=== PATIENT | male | born 1950 | race Caucasian/White ===

== ENCOUNTER → 2016-06-05 | Outpatient (CLI) | payer OTHER ==
--- NOTE | 2016-06-05 16:24 | DX ---
Right knee series 3 views 1505 hours. History: Previous right distal patellar tendon repair. Recheck fracture. Findings: Comparison to June 28, 2015 and studies dating back to December 29, 2014. There has been fracture of the superior cerclage portion of the wire at the medial and lateral corner s associated with the superior patellar fracture component that is now subluxed anterior to the cercl age wire as well as superior in position. On the previous study, the superior component of the patell a was displaced from the anterior component by about 20 mm. On today's study the distance measures ab out 26 mm. There is increase calcification at the tibial tuberosity along the patellar tendon. Moderate vascular calcifications are once again noted. There is a mild to moderate effusion in the suprapatella bursa. The knee joint space is relatively well-maintained without significant osteophyte formation. On the merchant view obtained there is no subluxation of the patella. Impression: 1. Interval fracture of the superior arc of the cerclage wire with anterior and superior displacement of the superior component of the patellar fracture. 2. Mild to moderate effusion suprapatella bursa. 3. Increasing calcifications at the tibial tuberosity associated with the patellar tendon. This could represent underlying calcific tendinosis.
== END ==
LOC: BMCIMAGING 15:06
PROVIDERS: ATTEND Physician Assistant
DX: S82.001K Unspecified fracture of right patella, subsequent encounter for closed fracture with nonunion (principal); T84.418A Breakdown (mechanical) of other internal orthopedic devices, implants and grafts, initial encounter

== ENCOUNTER → 2016-06-21 | Outpatient (CLI) | payer OTHER ==
[~2016-06-21] MED LIST: IOPAMIDOL (ISOVUE 370) 100 ML BTL IV ONE
--- NOTE | 2016-06-21 16:44 | CT ---
Chest CTA (with IV contrast) History: Follow-up enlarged ascending aorta (4.4 cm) on May 2011. Coronary artery disease. Preope rative knee surgery. I77.810. Technique: Ultrafast ultrathin [address] obtained through the chest after bolus administrat ion of 85 mL of Isovue 370 nonionic contrast without complication. Soft tissue and bone window evalua tion is performed. Dose reduction techniques were utilized. Comparison: June 19, 2012 CT Chest: Findings: A prior 3 mm noncalcified solid nodule with slightly irregular margins in the lateral right lower lobe has now increased in size to 8 x 8 mm (image 143, series 3). A very small area of tree-in -bud nodularity in the anterolateral right upper lobe (image 92)and low anterior right upper lobe (im age 89) are stable and may indicate chronic MARIA D infection or localized bronchiolitis of other etiolo gy. There is no evidence of pneumonia, pleural effusion, mass or pneumothorax. The heart remains enla rged with triple-vessel coronary artery disease, but without pericardial effusion. The left atrial ap pendage is prominent without thrombus. The aortic valve is trileaflet and gracile, without leaflet ca lcification. Asymmetrical enlargement of the right thyroid, mildly compressing the right side of the trachea, is not significantly changed measuring 2 cm width. There is chronic cholelithiasis without s econdary evidence of cholecystitis. Impression: Normal. CTA Chest: Technique: Multiplanar and 3D reconstructions are reviewed on an independent 3D workstation. Findings: On corrected axial non gated images the ascending aorta measures 4.7 cm AP x 4.6 cm compar ed to the adjacent main pulmonary artery which measures 3.6 cm and the prior CT 4.2 cm x 4.4 cm. On c orrected sagittal images it measures 4.3cm AP. There is no aortic dissection. Impression: 1. Progressive enlargement of the ascending aortic aneurysm, without dissection. 2. Chronic triple-vessel coronary artery disease. 3. Enlarging noncalcified left lower lobe pulmonary nodule. Consider PET CT and/or short interval fol low-up noncontrast CT in perhaps 6 months for reevaluation. Results called to Dr. Tyler at 4:43 p.m. General information for patients regarding this examination can be found at [email or web address]. If you have questions or comments about this report, please contact me at [phone] (hospital) or [phone] (cell).
== END ==
LOC: CIMAGING 12:32
PROVIDERS: ATTEND Internal Medicine Cardiovascular Disease
DX: I71.2 Thoracic aortic aneurysm, without rupture (principal); I25.10 Atherosclerotic heart disease of native coronary artery without angina pectoris; R91.1 Solitary pulmonary nodule
CPT/HCPCS: 71275-PO; Q9967

== ENCOUNTER → 2016-06-28 | Day surgery (SDC) | payer OTHER ==
[~2016-06-28] MED LIST changes: +ASPIRIN EC 325 MG TAB PO ONE; +ATROPINE SULFATE 1 MG/10 ML SYR IVP PRN; +DIAZEPAM 5 MG TAB ONE; +DIAZEPAM 5 MG TAB PO ONE; +FAMOTIDINE 20 MG TAB ONE; +FAMOTIDINE 20 MG TAB PO ONE; +HEPARIN 10,000 UNIT/10 ML MDV ONE; +HYDROCODONE/APAP 5/325 TAB PO PRN; -IOPAMIDOL (ISOVUE 370) 100 ML BTL IV ONE; +IOPAMIDOL (ISOVUE-370) 150 ML BTL IV ONE; +LIDOCAINE 1% 30 ML SDV ONE; +LIDOCAINE 1% 5 ML SDV ONE; +MIDAZOLAM 2 MG/2 ML VIAL ONE; +NITROGLYCERIN 0.4 MG BTL SL PRN; +NS 1,000 ML IV ONE; +ONDANSETRON 4 MG/2 ML VIAL IVP PRN; +OXYCODONE/APAP 5/325 TAB PO PRN; +VERAPAMIL 5 MG/2 ML VIAL ONE; +diphenhydrAMINE 25 MG CAP PO ONE; +fentaNYL 100 MCG/2 ML INJ ONE
--- NOTE | 2016-06-28 10:10 | CPEKG ---
Heart Rate: 50 RR Interval: 1200 P-R Interval: 196 QRSD Interval: 108 QT Interval: 464 QTC Interval: 424 P [place]: 26 QRS [place]: 13 T Wave [place]: -21 EKG Severity - ABNORMAL ECG - EKG Impression: SINUS RHYTHM EKG Impression: NONSPECIFIC T ABNORMALITIES, INFERIOR LEADS Electronically Signed By: Bev Gilliam 28-Jun-2016 17:08:13
[2016-06-28 10:34] LABS: % IMMATURE GRANULYOCYTES 0.1 % (0.0-1.1); ABSOLUTE IMMATURE GRANULOCYTES 0.01 10^3/uL (0.00-0.10); ADD DIFF? NO; ADD MORPH? NO; ADD SCAN? NO; ATYPICAL LYMPHOCYTE FLAG 20 (0-99); FRAGMENT RBC FLAG 0 (0-99); HEMATOCRIT 40.8 % (40.0-51.0); HEMOGLOBIN 13.4 g/dL (13.7-17.5); LEFT SHIFT FLG 0 (0-99); LIPEMIA HEMOLYSIS FLAG 80 (0-99); MEAN CELL HEMOGLOBIN CONCENTR. 32.8 g/dL (32.4-36.7); MEAN CELL VOLUME 88.3 fL (81.5-99.8); MEAN PLATELET VOLUME 10.4 fL (8.7-11.7); PLATELET CLUMPS FLAG 0 (0-99); PLATELET COUNT 242 10^3/uL (150-400); RED BLOOD CELL COUNT 4.62 10^6/uL (4.40-6.38); RED CELL DISTRIBUTION WIDTH 15.9 % (11.5-15.2)
[2016-06-28 10:42] LABS: INR 1.08 (0.83-1.16); PROTIME(PATIENT) 13.9 SEC (12.0-15.0)
[2016-06-28 11:01] LABS: ANION GAP 10 mEq/L (8-16); CARBON DIOXIDE 25 mEq/l (22-31); CHLORIDE 107 mEq/L (97-110); CHOLESTEROL 98 mg/dL (140-220); CHOLESTEROL/HDL RATIO 2.28 RATIO (1.00-4.97); CREATININE 0.9 mg/dL (0.7-1.3); GLOMERULAR FILTRATION RATE > 60; GLUCOSE 90 mg/dL (70-100); HIGH DENSITY LIPOPROTEIN 43 mg/dL (40-65); LDL/HDL RATIO 1.05 RATIO (1.00-3.64); LOW DENSITY LIPOPROTEIN 45 mg/dL (80-100); MAGNESIUM 1.7 mg/dL (1.6-2.3); NON-HIGH DENSITY LIPOPROTEIN 55 mg/dL (90-129); POTASSIUM 4.6 mEq/L (3.5-5.2); SODIUM 142 mEq/L (134-144); TRIGLYCERIDE 51 mg/dL (40-150); VERY LOW DENSITY LIPOPROTEINS 10 mg/dL (8-25)
--- NOTE | 2016-06-28 12:30 | SUROPNOTE ---
[facility] Operative Report - Surgery Date of Procedure: 06/28/16 Indication: This patient is a 65 year old man, with known coronary disease, history of anterior AR and PCI in 1996 (I do not have details/records of this), hypertension, progressive ascending aorta dilation, hyperlipidemia, family history of premature coronary disease in multiple first degree relatives, left lower lung mass, and LIAM, who presented to our office for cardiac evaluation in the setting of pre-operative evaluation for right knee surgery. The patient has no cardiac complaints and denies angina or anginal equivalent. Nuclear stress test was abnormal, demonstrating inferior lead T-wave inversion at peak stress, a new small size, severe intensity reversible defect in the basal and mid inferior wall consistent with ischemia, new inferior wall hypokinesis, and left ventricular transient ischemic dilation. The patient's knee surgery has been cancelled until he undergoes further evaluation. Left heart catheterization indicated secondary to known coronary disease and high risk non-invasive testing. Procedures performed: 1. Left heart catheterization with left ventricular and selective coronary angiography. Description of procedure: Description, risks, benefits and alternatives were discussed in detail. Informed consent was obtained. The patient was brought to the catheterization laboratory where a timeout was performed. The right wrist was sterilely prepped and draped. 2% lidocaine utilized for local anesthetic. A 5/6-Serbian slender hemostatic sheath placed right radial artery utilizing micropuncture technique. Intraarterial verapamil and intravenous heparin was administered. Diagnostic coronary angiography performed with 6-Serbian, Yakov left-3.5 and Yakov right -4 catheter. All catheters were passed over a 0.035 guidewire. Pigtail catheter was then utilized for left heart catheterization and left ventricular angiography. Arterial sheath was removed and TR band was placed. Findings: 1. Hemodynamics: Aortic pressure 127/75, mean of 82, left ventricular pressure 134/6/26 end-diastolic. There was no significant pull back gradient across the aortic valve. 2. Left ventricle: The left ventricle appears normal in size. Left ventricle is normal shape. Segmental wall motion is abnormal with mild inferior wall hypokinesis and an ejection fraction of 50%. There are no filling defects or significant mitral regurgitation. The ascending aorta is moderately dilated. 3. Coronary angiography: Left main: The left main is a large trifurcating vessel with mild disease 4. Left anterior descending: This is a large vessel continuing around the apex. There are no major diagonal branches. There is a proximal stent which is widely patent. 5. Ramus Intermedius: This is a small-moderate vessel with a proximal 85% stenosis. 6. Circumflex: The circumflex large nondominant vessel with a single large branching obtuse marginal, with mild irregularities. 7. Right coronary: Large dominant vessel. There is a very eccentric, heavily calcified 99% mid-vessel subtotal occlusion with TIMI2 flow, with antegrade and retrograde collaterals. Large PDA and large posterolateral fill from left to right collaterals. Overall Impression: 1. Severe mid-vessel right coronary subtotal occlusion. 2. Severe 85% proximal ramus intermedius stenosis. 3. Mild coronary artery disease elsewhere. Patent stent in the proximal left anterior descending. 4. Mild left ventricle inferior wall hypokinesis, with low-normal systolic function, EF 50%. 5. Moderate ascending aorta dilation, which has been progressive in enlargement based on CT. Plan: 1. The patient may proceed with knee surgery. 2. Plan for right coronary intervention shortly after knee surgery, in the post -operative phase. 3. Start dual anti-platelet therapy in post-operative phase, prior to intervention. Portions of this report were documented by a emergency medical dispatcher. I have reviewed this report and agree with the documentation. Report scribed for Dr. Goran Talley. Report scribed by Krystyna Jaime.
== END | disposition home or self-care (01) ==
LOC: FCATH 09:46
PROVIDERS: ATTEND Internal Medicine Interventional Cardiology
PROC: B2111ZZ Fluoroscopy of Multiple Coronary Arteries using Low Osmolar Contrast (ICD-10-PCS; principal; 2016-06-28)
PROC: 4A023N7 Measurement of Cardiac Sampling and Pressure, Left Heart, Percutaneous Approach (ICD-10-PCS; principal; 2016-06-28)
PROC: B2151ZZ Fluoroscopy of Left Heart using Low Osmolar Contrast (ICD-10-PCS; principal; 2016-06-28)
DX: Z01.810 Encounter for preprocedural cardiovascular examination (principal); I25.10 Atherosclerotic heart disease of native coronary artery without angina pectoris; I25.2 Old myocardial infarction; I10 Essential (primary) hypertension; I72.0 Aneurysm of carotid artery; R91.8 Other nonspecific abnormal finding of lung field; Z82.49 Family history of ischemic heart disease and other diseases of the circulatory system; Z95.5 Presence of coronary angioplasty implant and graft; G47.33 Obstructive sleep apnea (adult) (pediatric); E78.5 Hyperlipidemia, unspecified
CPT/HCPCS: J1644; J2250; J3010; Q9967

== ENCOUNTER 2016-07-01 07:27 | Day surgery (SDC) | payer OTHER ==
[2016-07-01] MEDS ORDERED: BUPIVACAINE/EPI 0.5% 30 ML SDV ONE (07:35)
[2016-07-01] MEDS ORDERED: POLYMYXIN B SULFATE 500,000 UNIT/10 ML SYR IRR ONE (07:35)
[2016-07-01] MEDS ORDERED: LIDOCAINE 1% 5 ML SDV ID PRN (08:04)
[2016-07-01] MEDS ORDERED: LR 1,000 ML IV ONE (08:04)
[2016-07-01] MEDS ORDERED: ACETAMINOPHEN 500 MG TAB PO ONE (08:30)
[2016-07-01] MEDS ORDERED: ceFAZolin 2 GM/DEXTROSE 100 ML IV ONE (08:30)
[2016-07-01] MEDS ORDERED: CHLORHEXIDINE GLUC HIBICLENS 118 ML BTL TP ONE (08:30)
[2016-07-01] MEDS ORDERED: MIDAZOLAM 2 MG/2 ML VIAL ONE (08:53)
[2016-07-01] MEDS ORDERED: DEXAMETHASONE 4 MG/ML VIAL ONE (09:05)
[2016-07-01] MEDS ORDERED: ONDANSETRON 4 MG/2 ML VIAL ONE (09:05)
[2016-07-01] MEDS ORDERED: PROPOFOL 200 MG/20 ML VIAL ONE (09:05)
[2016-07-01] MEDS ORDERED: fentaNYL 250 MCG/5 ML INJ ONE (09:05)
[2016-07-01] MEDS ORDERED: THROMBIN (RECOMBINANT) 5,000 UNIT VIAL TP ONE (09:14)
[2016-07-01] MEDS ORDERED: CALCIUM CHLORIDE 1 GM/10 ML INJ ONE (09:14)
[2016-07-01] MEDS ORDERED: epHEDrine SULFATE 10 MG/ML SYR ONE (09:26)
[2016-07-01] MEDS ORDERED: KETOROLAC 30 MG/1 ML SDV ONE (10:13)
[2016-07-01] MEDS ORDERED: fentaNYL 100 MCG/2 ML INJ ONE (10:48)
[2016-07-01] MEDS ORDERED: OXYCODONE/APAP 5/325 TAB ONE (11:12)
== END 2016-07-01 14:30 | disposition home or self-care (01) ==
LOC: FSGY 07:27
PROVIDERS: ATTEND Orthopaedic Surgery
PROC: 0QBD0ZZ Excision of Right Patella, Open Approach (ICD-10-PCS; principal; 2016-07-01 09:15)
PROC: 0KQQ0ZZ Repair Right Upper Leg Muscle, Open Approach (ICD-10-PCS; 2016-07-01 09:15)
DX: S82.041K Displaced comminuted fracture of right patella, subsequent encounter for closed fracture with nonunion (principal); X58.XXXD Exposure to other specified factors, subsequent encounter; E78.5 Hyperlipidemia, unspecified; I10 Essential (primary) hypertension; G47.33 Obstructive sleep apnea (adult) (pediatric); I77.810 Thoracic aortic ectasia; I25.10 Atherosclerotic heart disease of native coronary artery without angina pectoris; E03.9 Hypothyroidism, unspecified; Z95.5 Presence of coronary angioplasty implant and graft; Z98.890 Other specified postprocedural states
CPT/HCPCS: J0690; J1100; J1885; J2250; J2405; J2704; J3010; L1832

== ENCOUNTER 2016-08-05 09:45 | Day surgery (SDC) | payer OTHER ==
[2016-08-05] MEDS ORDERED: ASPIRIN EC 325 MG TAB PO ONE ×2 (09:50→10:21)
[2016-08-05] MEDS ORDERED: diphenhydrAMINE 25 MG CAP PO ONE ×2 (09:50→10:21)
[2016-08-05] MEDS ORDERED: FAMOTIDINE 20 MG TAB PO ONE (09:50)
[2016-08-05] MEDS ORDERED: NS 1,000 ML IV ONE (09:50)
[2016-08-05] MEDS ORDERED: DIAZEPAM 5 MG TAB PO ONE (09:50)
--- NOTE | 2016-08-05 10:18 | CPEKG ---
Heart Rate: 48 RR Interval: 1250 P-R Interval: 200 QRSD Interval: 112 QT Interval: 480 QTC Interval: 429 P [place]: 15 QRS [place]: -5 T Wave [place]: -10 EKG Severity - ABNORMAL ECG - EKG Impression: SINUS BRADYCARDIA EKG Impression: NONSPECIFIC INTRAVENTRICULAR CONDUCTION DELAY Electronically Signed By: Ellis Faulkner 06-Aug-2016 09:27:35
[2016-08-05] MEDS ORDERED: FAMOTIDINE 20 MG TAB ONE (10:21)
[2016-08-05] MEDS ORDERED: DIAZEPAM 5 MG TAB ONE (10:22)
[2016-08-05 10:50] LABS: % IMMATURE GRANULYOCYTES 0.2 % (0.0-1.1); ABSOLUTE IMMATURE GRANULOCYTES 0.01 10^3/uL (0.00-0.10); ADD DIFF? NO; ADD MORPH? NO; ADD SCAN? NO; ATYPICAL LYMPHOCYTE FLAG 10 (0-99); FRAGMENT RBC FLAG 0 (0-99); HEMATOCRIT 39.9 % (40.0-51.0); HEMOGLOBIN 13.2 g/dL (13.7-17.5); LEFT SHIFT FLG 0 (0-99); LIPEMIA HEMOLYSIS FLAG 80 (0-99); MEAN CELL HEMOGLOBIN 28.9 pg (27.9-34.1); MEAN CELL HEMOGLOBIN CONCENTR. 33.1 g/dL (32.4-36.7); MEAN CELL VOLUME 87.5 fL (81.5-99.8); MEAN PLATELET VOLUME 9.9 fL (8.7-11.7); PLATELET CLUMPS FLAG 0 (0-99); PLATELET COUNT 247 10^3/uL (150-400); RED BLOOD CELL COUNT 4.56 10^6/uL (4.40-6.38); RED CELL DISTRIBUTION WIDTH 15.9 % (11.5-15.2)
[2016-08-05 10:54] LABS: INR 1.07 (0.83-1.16); PROTIME(PATIENT) 13.8 SEC (12.0-15.0)
[2016-08-05 11:08] LABS: ANION GAP 8 mEq/L (8-16); CALCIUM 9.3 mg/dL (8.5-10.4); CARBON DIOXIDE 27 mEq/l (22-31); CHLORIDE 106 mEq/L (97-110); CHOLESTEROL 100 mg/dL (140-220); CHOLESTEROL/HDL RATIO 2.22 RATIO (1.00-4.97); CREATININE 0.9 mg/dL (0.7-1.3); GLOMERULAR FILTRATION RATE > 60; GLUCOSE 92 mg/dL (70-100); HIGH DENSITY LIPOPROTEIN 45 mg/dL (40-65); LDL/HDL RATIO 1.04 RATIO (1.00-3.64); LOW DENSITY LIPOPROTEIN 47 mg/dL (80-100); MAGNESIUM 1.8 mg/dL (1.6-2.3); NON-HIGH DENSITY LIPOPROTEIN 55 mg/dL (90-129); POTASSIUM 4.2 mEq/L (3.5-5.2); SODIUM 141 mEq/L (134-144); TRIGLYCERIDE 42 mg/dL (40-150); VERY LOW DENSITY LIPOPROTEINS 8 mg/dL (8-25)
[2016-08-05] MEDS ORDERED: fentaNYL 100 MCG/2 ML INJ ONE ×2 (12:35→13:58)
[2016-08-05] MEDS ORDERED: LIDOCAINE 1% 30 ML SDV ONE (12:35)
[2016-08-05] MEDS ORDERED: VERAPAMIL 5 MG/2 ML VIAL ONE ×2 (12:36→12:41)
[2016-08-05] MEDS ORDERED: HEPARIN 10,000 UNIT/10 ML MDV ONE ×2 (12:36→13:26)
[2016-08-05] MEDS ORDERED: MIDAZOLAM 2 MG/2 ML VIAL ONE ×2 (12:36→13:21)
[2016-08-05] MEDS ORDERED: NITROGLYCERIN 1,500 MCG/15 ML VIAL MISC ONE (12:41)
[2016-08-05] MEDS ORDERED: IOPAMIDOL (ISOVUE-300) 200 ML BTL IV ONE ×2 (12:47→13:54)
--- NOTE | 2016-08-05 13:12 | SUROPNOTE ---
[facility] Operative Report - Surgery Date of Procedure: 08/05/16 Indication: This patient is a 65 year old man, with known coronary disease and history of anterior [place] and PCI in 1996, presenting today to undergo planned percutaneous coronary intervention. The patient had left heart catheterization in the setting of high-risk non-invasive testing and need for preoperative clearance. He was found to have a chronic total occlusion of the right coronary artery with collateralization. He was felt to be safe to undergo surgery due to the presence of collaterals and his lack of anginal symptoms, with plan to return for intervention at a later date. He presents today for planned intervention on right coronary chronic total occlusion. Procedures performed: 1. Selective coronary angiography. 2. Unsuccessful percutaneous intervention of the right coronary artery chronic total occlusion. Description of procedure: Description, risks, benefits and alternatives were discussed in detail. Informed consent was obtained. The patient was brought to the catheterization laboratory where a timeout was performed. The right wrist was sterilely prepped and draped. 2% lidocaine utilized for local anesthetic. A 5/6-Burmese slender hemostatic sheath placed right radial artery utilizing micropuncture technique. A 6-Burmese AL1 short-tip with side holes was utilized as guide catheter to engage the right coronary artery. Intraarterial verapamil and intravenous heparin was administered. A 135cm Corsair microcatheter was placed in the right coronary artery with a short Fighter wire. Fighter wire was not able to cross the total occlusion and was instead exchanged for a short Samurai wire. The Samurai was able to advance slightly further with the Corsair, then was exchanged again for the Fighter wire. There was continued difficulty advancing the wire passed the heavily calcified lesion. The Fighter wire was exchanged for a 300cm Transportation Services Representative 200. The Transportation Services Representative 200 was also unsuccessful in advancing across the calcified lesion. Instead, it was exchanged for a Confianza Pro 12 through the Corsair catheter. This also made little progress in crossing the heavily calcified occlusion. At this point, the wire and Corsair were removed. Decision was made to exchange the AL1 guide catheter for a 6-Burmese AL1.5 guide catheter , in order to obtain better proximal control. The Corsair catheter was re- introduced with the Confianza Pro 12 wire. The Confianza Pro 12 appeared to make slight progress, but was unable to cross the occlusion. The Confianza Pro 12 was then exchanged for the Transportation Services Representative 200. This was also unable to advance and was exchanged for a 300cm Miraclebros 6. This was also unsuccessful in crossing the calcified lesion. At this point, after several unsuccessful attempts with different wires, a diagnostic 6-Burmese Yakov left-3.5 was utilized for further angiography of the left coronary system and to further assess the left- to-right collaterals. There is collateralization that could potentially be used for retrograde intervention, however at this point in the case, 5,000mGy has already been reached. Further intervention would require too much radiation exposure, but could be considered at a later date. Arterial sheath was removed and TR band was placed. Findings: 1. Hemodynamics: Aortic pressure 124/74, mean of 96. For complete description of findings and coronary anatomy, please see left heart catheterization report 06/28/16. 2. Right coronary: Large dominant vessel with a very eccentric, heavily calcified mid-vessel chronic total occlusion with TIMI2 flow, with antegrade and retrograde collaterals. There is a large PDA and large posterolateral, which fill from left to right collaterals. Overall Impression: 1. Heavily calcified chronic total occlusion of the right coronary artery, with unsuccessful percutaneous coronary intervention. Plan: 1. Consider second attempt at intervention on a later date, utilized retrograde approach via collaterals. 2. Aggressive risk modification and high dose statin therapy. Portions of this report were documented by a medical device assembler. I have reviewed this report and agree with the documentation. Report scribed for Dr. Goran Talley. Report scribed by Krystyna Jaime.
[2016-08-05] MEDS ORDERED: HYDROCODONE/APAP 5/325 TAB PO PRN (16:27)
[2016-08-05] MEDS ORDERED: OXYCODONE/APAP 5/325 TAB PO PRN (16:27)
== END 2016-08-05 19:04 | disposition home or self-care (01) ==
LOC: FCATH 09:45 → UNDOADMOB 12:58 → F2W 12:58 → FCATH 19:04
PROVIDERS: ATTEND Internal Medicine Interventional Cardiology
DX: I25.10 Atherosclerotic heart disease of native coronary artery without angina pectoris (principal); I25.82 Chronic total occlusion of coronary artery; I25.2 Old myocardial infarction; I10 Essential (primary) hypertension; E78.5 Hyperlipidemia, unspecified; I71.4 Abdominal aortic aneurysm, without rupture
CPT/HCPCS: 76000; 93005; C1769; C1887; J1644; J2250; J3010; Q9967

== ENCOUNTER → 2016-08-07 | Outpatient (CLI) | payer OTHER | LOC: BMCIMAGING 10:38 | PROVIDERS: ATTEND Physician Assistant | DX: S82.001D Unspecified fracture of right patella, subsequent encounter for closed fracture with routine healing (principal); M25.461 Effusion, right knee; R93.6 Abnormal findings on diagnostic imaging of limbs; Z98.890 Other specified postprocedural states ==

== ENCOUNTER → 2016-11-29 | Outpatient (CLI) | payer OTHER ==
[~2016-11-29] MED LIST changes: -ASPIRIN EC 325 MG TAB PO ONE; -ATROPINE SULFATE 1 MG/10 ML SYR IVP PRN; -DIAZEPAM 5 MG TAB ONE; -DIAZEPAM 5 MG TAB PO ONE; -FAMOTIDINE 20 MG TAB ONE; -FAMOTIDINE 20 MG TAB PO ONE; -HEPARIN 10,000 UNIT/10 ML MDV ONE; -HYDROCODONE/APAP 5/325 TAB PO PRN; +IOPAMIDOL (ISOVUE 370) 100 ML BTL IV ONE; -IOPAMIDOL (ISOVUE-370) 150 ML BTL IV ONE; -LIDOCAINE 1% 30 ML SDV ONE; -LIDOCAINE 1% 5 ML SDV ONE; -MIDAZOLAM 2 MG/2 ML VIAL ONE; -NITROGLYCERIN 0.4 MG BTL SL PRN; -NS 1,000 ML IV ONE; -ONDANSETRON 4 MG/2 ML VIAL IVP PRN; -OXYCODONE/APAP 5/325 TAB PO PRN; -VERAPAMIL 5 MG/2 ML VIAL ONE; -diphenhydrAMINE 25 MG CAP PO ONE; -fentaNYL 100 MCG/2 ML INJ ONE
== END ==
LOC: CIMAGING 13:10
PROVIDERS: ATTEND Internal Medicine Cardiovascular Disease
DX: I77.810 Thoracic aortic ectasia (principal)
CPT/HCPCS: 71275; Q9967

== ENCOUNTER → 2017-07-25 | Outpatient (CLI) | payer OTHER | LOC: CIMAGING 15:01 | PROVIDERS: ATTEND Internal Medicine Cardiovascular Disease | DX: Z86.79 Personal history of other diseases of the circulatory system (principal) | CPT/HCPCS: 93880-PO ==

== ENCOUNTER → 2018-07-10 | Outpatient (CLI) | payer OTHER | LOC: CIMAGING 09:10 | PROVIDERS: ATTEND Internal Medicine Cardiovascular Disease | DX: I71.2 Thoracic aortic aneurysm, without rupture (principal); K80.20 Calculus of gallbladder without cholecystitis without obstruction | CPT/HCPCS: 71275; Q9967 ==